=== PATIENT | female | born 1945 | race Caucasian/White ===

== ENCOUNTER → 2017-05-01 | Outpatient (CLI) | payer MEDICARE, BC ==
--- NOTE | 2017-05-01 15:51 | BD ---
EXAMINATION TYPE: MG DEXA axial skeleton. DATE OF EXAM: 05/01/2017 COMPARISON: NONE CLINICAL HISTORY: PT IS A 72 YR OLD FEMALE: ICD-10 CODE: Z13.820 SCREEN FOR OSTEOPOROSIS Height: 64.25 Weight: 179 LANGUAGE BARRIER FRAX RISK QUESTIONS: Alcohol (3 or more units per day): NO Family History (Parent hip fracture): UNKNOWN Glucocorticoids (More than 3mos): NO (Ex: prednisone, prednisolone, methylprednisolone, dexamethasone, and hydrocortisone). History of Fracture in Adulthood: NO Secondary Osteoporosis: 1. Type 1 Diabetes: NO 2. Hyperthyroidism: NO 3. Menopause before 45: NO 4. Malnutrition: NO 5. Chronic liver disease: NO Rheumatoid Arthritis: NO Current Tobacco Use: NO RISK FACTORS HISTORY OF: Family History of Osteoporosis: UNKNOWN Active: NO, WHEELCHAIR Diet low in dairy products/other sources of calcium: NO Postmenopausal woman: YES AT 51 YRS OLD Lost more than 2 inches in height since high school: YES Frequent falls: PT HAS HAD STROKE, WHEELCHAIR Hyperparathyroidism: UNSURE Adrenal Insufficiency: UNSURE MEDICATIONS: Additional Medications: ASPIRIN, LISINORPIL, GLIPIZTIDE, METFORMIN, WATER PILL, TRAMADOL, ATORVASTATI N, MAGNESIUM, CITALOPRAM, GABIPENTIN, EYE DROP MEDS Additional History: STROKE VICTIM, DIABETIC, EXAM MEASUREMENTS: Bone mineral densitometry was performed using the [employer] System. Bone mineral density as measured about the Lumbar spine is: ----- L1-L4(G/cm2): 1.088 T Score Values are as follows: ----- L1: -1.1 ----- L2: -1.6 ----- L3: -0.3 ----- L4: -0.4 ----- L1-L4: -0.8 Bone mineral density THIS IS HER FIRST BONE DENSITY TEST Bone mineral density about the R hip (g/cm2): 0.971 Bone mineral density about the L hip (g/cm2): 0.998 T Score values are as follows: -----R Neck: -1.1 -----L Neck: -1.3 -----R Total: -0.3 -----L Total: -0.1 Bone mineral density BASELINE STUDY FRAX%S: THERE IS A 9.3% CHANCE OF A MAJOR OSTEOPOROTIC FX AND A 1.2% FOR HIP FX.....PROBABILITY O F FX IN 10 YRS TIME IMPRESSION: Osteopenia (T Score between -2.5 and -1) as noted by T score values with respect to the bilateral hip s There is slightly increased risk of fracture and the patient may be considered for treatment. Re-Screen 2-5 years. NOTE: T-SCORE=SD OF THE YOUNG ADULT MEAN.
--- NOTE | 2017-05-03 07:21 | MM ---
Reason for exam: screening (asymptomatic). History: Patient is postmenopausal. Physical Findings: A clinical breast exam by your physician is recommended on an annual basis and results should be correlated with mammographic findings. MG 3D Screening Mammo W/Cad Bilateral CC and MLO view(s) were taken. There are scattered fibroglandular densities. There is no discrete abnormality. ASSESSMENT: Negative, BI-RAD 1 RECOMMENDATION: Routine screening mammogram of both breasts in 1 year.
== END | disposition home or self-care (01) ==
LOC: RADMAMWWP 12:54
PROVIDERS: ATTEND Family Medicine
DX: Z12.31 Encounter for screening mammogram for malignant neoplasm of breast (principal); M85.88 Other specified disorders of bone density and structure, other site
CPT/HCPCS: 77063; 77067; 77080

== ENCOUNTER → 2018-05-24 | Outpatient (CLI) | payer MEDICARE, BC ==
--- NOTE | 2018-05-25 10:40 | MM ---
Reason for exam: screening (asymptomatic). Last mammogram was performed 1 year and 1 month ago. History: Patient is postmenopausal. Physical Findings: A clinical breast exam by your physician is recommended on an annual basis and results should be correlated with mammographic findings. MG Screening Mammo w CAD Bilateral CC and MLO view(s) were taken. Prior study comparison: May 01, 2017, bilateral MG 3d screening mammo w/cad. There are scattered fibroglandular densities. There are benign appearing round calcifications bilaterally. Asymmetric breast tissue in the left subareolar breast, stable. There is no discrete abnormality. ASSESSMENT: Benign, BI-RAD 2 RECOMMENDATION: Routine screening mammogram of both breasts in 1 year.
== END | disposition home or self-care (01) ==
LOC: RADMAMWWP 11:54
PROVIDERS: ATTEND Family Medicine
DX: Z12.31 Encounter for screening mammogram for malignant neoplasm of breast (principal)
CPT/HCPCS: 77067

== ENCOUNTER → 2022-10-10 | Outpatient (CLI) | payer MEDICARE, BC ==
--- NOTE | 2022-10-10 10:42 | XR ---
EXAMINATION TYPE: XR humerus RT DATE OF EXAM: 10/10/2022 10:29 AM INDICATION: Patient age:Female; 77 years old; Reason for study: [id number] RT SHLD PAIN,RT ARM PAIN; [facility]. COMPARISON: None TECHNIQUE: The right humerus was examined in frontal and lateral projections. FINDINGS/IMPRESSION: The humeral head appears anterior inferiorly displaced on the glenoid. No evidence of fracture. Corre late for dislocation.
== END | disposition home or self-care (01) ==
LOC: RADXRYALE 10:17
PROVIDERS: ATTEND Nurse Practitioner Family
DX: M25.511 Pain in right shoulder (principal); M79.601 Pain in right arm

== ENCOUNTER → 2023-03-13 | Outpatient (CLI) | payer MEDICARE, BC ==
[2023-03-13 11:33] LABS: Partial Thromboplastin Time 22.8 sec (22.0-30.0)
[2023-03-13 12:22] LABS: Prothrombin Time 10.9 sec (10.0-12.5)
[2023-03-13 15:29] LABS: Basophils # (A) 0.05 X 10*3/uL (0.00-0.10); Basophils % (A) 0.5 %; Eosinophils # (A) 0.12 X 10*3/uL (0.04-0.35); Eosinophils % (A) 1.1 %; HGB 13.6 g/dL (12.0-15.0); Lymphocytes # (A) 2.37 X 10*3/uL (0.90-5.00); Lymphocytes % (A) 22.5 %; MCH 28.2 pg (27.0-32.0); MCHC 31.6 g/dL (32.0-37.0); MCV 89.2 FL (80.0-97.0); Mean Platelet Volume 10.3 FL (9.5-12.2); Monocytes # (A) 0.59 X 10*3/uL (0.20-1.00); Monocytes % (A) 5.6 %; NRBC Per 100 WBC 0 X 10*3/uL (0.00-0.01); Neutrophils # (A) 7.35 X 10*3/uL (1.80-7.70); Neutrophils % (A) 69.9 %; Platelet Count 331 X 10*3/uL (140-440); RBC 4.82 X 10*6/uL (4.10-5.20); RDW 13.4 % (11.5-14.5); WBC 10.52 X 10*3/uL (4.50-10.00)
[2023-03-13 15:52] LABS: BUN/Creat Ratio 17.22 Ratio (12.00-20.00); Blood Urea Nitrogen 15.5 mg/dL (9.0-27.0); Chloride 100 mmol/L (96-109); Glucose 91 mg/dL (70-110); Potassium 5.2 mmol/L (3.5-5.5); Sodium 140 mmol/L (135-145)
[2023-03-13 15:53] LABS: ALT 17 U/L (8-44); AST 14 U/L (13-35); Albumin 4.6 g/dL (3.8-4.9); Albumin/Globulin Ratio 1.64 Ratio (1.60-3.17); Alkaline Phosphatase 53 U/L (41-126); Calcium 10.3 mg/dL (8.7-10.3); Carbon Dioxide 28.8 mmol/L (21.6-31.8); Globulin 2.8 g/dL (1.6-3.3); Total Bilirubin 0.6 mg/dL (0.3-1.2); Total Protein 7.4 g/dL (6.2-8.2)
[2023-03-13 17:09] LABS: Appearance,Urine Clear (Clear); Bilirubin,Urine Negative (Negative); Blood,Urine Negative (Negative); Color,Urine Yellow (Yellow); Ketones,Urine Negative (Negative); Nitrite,Urine Negative (Negative); PH, Urine 6.5; Specific Gravity,Urine 1.016 (1.001-1.030); Urobilinogen,Urine 0.2 E.U./DL
[2023-03-13 17:26] LABS: Bacteria,Urine Trace
== END | disposition home or self-care (01) ==
LOC: LABPAT 10:14
PROVIDERS: ATTEND Orthopaedic Surgery
DX: Z01.812 Encounter for preprocedural laboratory examination (principal); M19.011 Primary osteoarthritis, right shoulder
CPT/HCPCS: 80053; 81001; 85025; 85610; 85730; 87070; 93005

== ENCOUNTER → 2023-04-03 | Outpatient (CLI) | payer MEDICARE, BC ==
[2023-04-03 11:24] LABS: Prothrombin Time 10.8 sec (10.0-12.5)
[2023-04-03 11:30] LABS: Partial Thromboplastin Time 21.3 sec (22.0-30.0)
[2023-04-03 16:06] LABS: HCT 44.9 % (37.2-46.3); HGB 14.2 g/dL (12.0-15.0); MCH 28.2 pg (27.0-32.0); MCHC 31.6 g/dL (32.0-37.0); MCV 89.1 FL (80.0-97.0); Mean Platelet Volume 9.6 FL (9.5-12.2); NRBC Per 100 WBC 0 X 10*3/uL (0.00-0.01); Platelet Count 407 X 10*3/uL (140-440); RBC 5.04 X 10*6/uL (4.10-5.20); RDW 13.7 % (11.5-14.5); WBC 11.81 X 10*3/uL (4.50-10.00)
[2023-04-03 16:16] LABS: ALT 20 U/L (8-44); AST 15 U/L (13-35); Albumin/Globulin Ratio 1.72 Ratio (1.60-3.17); Alkaline Phosphatase 54 U/L (41-126); BUN/Creat Ratio 27.43 Ratio (12.00-20.00); Blood Urea Nitrogen 19.2 mg/dL (9.0-27.0); Calcium 10.4 mg/dL (8.7-10.3); Carbon Dioxide 25.3 mmol/L (21.6-31.8); Chloride 98 mmol/L (96-109); Globulin 2.9 g/dL (1.6-3.3); Glucose 71 mg/dL (70-110); Potassium 4.4 mmol/L (3.5-5.5); Sodium 138 mmol/L (135-145); Total Bilirubin 1.2 mg/dL (0.3-1.2); Total Protein 7.9 g/dL (6.2-8.2)
== END | disposition home or self-care (01) ==
LOC: LABPAT 09:29
PROVIDERS: ATTEND Orthopaedic Surgery
DX: Z01.818 Encounter for other preprocedural examination (principal); M19.011 Primary osteoarthritis, right shoulder; Z22.322 Carrier or suspected carrier of Methicillin resistant Staphylococcus aureus
CPT/HCPCS: 80053; 85027; 85610; 85730; 87070; 93005

== ENCOUNTER 2023-04-25 07:05 | Inpatient (IN) | payer MEDICARE, BC ==
[2023-04-20 15:49] VITALS: BMI 26.6
[~2023-04-25 07:05] MED LIST: ACETAMINOPHEN TAB 500 MG TAB PO PRN; MELOXICAM 7.5 MG TAB PO PRN; TRANEXAMIC 1,000 MG/100ML-NACL 1,000 MG in SALINE 1 100ML.BAG IVPB PRN
[2023-04-25] MEDS ORDERED: HYDROmorphone 0.5 MG/0.5 ML SYRINGE IVP PRN ×4 (07:58→08:52)
[2023-04-25] MEDS ORDERED: LIDOCAINE 1% (10MG/ML) FOR IV START INTRADERMA PRN (07:58)
[2023-04-25] MEDS ORDERED: DEXAMETHASONE SOD PHOSPHATE 4 MG/ML 1 ML VIAL IV ONE (07:58)
[2023-04-25] MEDS ORDERED: ONDANSETRON 4 MG/2 ML VIAL IVP ONE ×2 (07:58→09:29)
[2023-04-25] MEDS ORDERED: fentaNYL (PF) 50 MCG/ML 2 ML AMP IV PRN (07:58)
[2023-04-25] MEDS ORDERED: MIDAZOLAM 2 MG/2 ML VIAL IV PRN (07:58)
[2023-04-25] MEDS ORDERED: ONDANSETRON 4 MG/2 ML VIAL IVP PRN (08:52)
[2023-04-25] MEDS ORDERED: SENNOSIDES-DOCUSATE SODIUM 1 EACH TAB PO PRN (08:52)
[2023-04-25] MEDS ORDERED: HYDROcodone/APAP 7.5-325MG 1 EACH TAB PO PRN ×2 (08:55)
[2023-04-25 09:06] LABS: Glucose,Whole Blood 137 mg/dL (70-110)
[2023-04-25] MEDS: LACTATED RINGERS 1,000 ML IV SCH (09:25)
[2023-04-25] MEDS ORDERED: DEXAMETHASONE SOD PHOSPHATE 4 MG/ML 1 ML VIAL IVP ONE (09:29)
[2023-04-25] MEDS ORDERED: MIDAZOLAM 2 MG/2 ML VIAL IVP ONE (09:31)
[2023-04-25] MEDS ORDERED: NEOSTIGMINE 1 MG/ML 10 ML VIAL ONE (11:20)
[2023-04-25] MEDS ORDERED: ROPIVACAINE 5 MG/ML 30 ML VIAL ONE (11:20)
[2023-04-25] MEDS ORDERED: SUCCINYLCHOLINE CHLORIDE 200 MG/10 ML VIAL IV ONE (11:20)
[2023-04-25] MEDS ORDERED: DEXAMETHASONE SOD PHOSPHATE 4 MG/ML 1 ML VIAL ONE (11:20)
[2023-04-25] MEDS ORDERED: LIDOCAINE 1% INJ 10MG/ML (20 ML MDV) ONE (11:20)
[2023-04-25] MEDS ORDERED: TRANEXAMIC 1,000 MG/100ML-NACL PREMIX BAG ONE (11:20)
[2023-04-25] MEDS ORDERED: PROPOFOL 10 MG/ML 20 ML VIAL IV ONE (11:20)
[2023-04-25] MEDS ORDERED: ROCURONIUM 10 MG/ML (5 ML VIAL) IV ONE (11:20)
[2023-04-25] MEDS ORDERED: PHENYLEPHRINE 10 MG/ML VIAL ONE (11:20)
[2023-04-25] MEDS ORDERED: fentaNYL (PF) 50 MCG/ML 2 ML AMP ONE (11:20)
[2023-04-25] MEDS ORDERED: WATER FOR INJECTION, STERILE 10 ML VIAL IV ONE (11:20)
[2023-04-25] MEDS ORDERED: GLYCOPYRROLATE 0.2 MG/ML 2 ML VIAL ONE (11:20)
[2023-04-25] MEDS ORDERED: ePHEDrine 50 MG/ML 1 ML VIAL ONE (11:20)
[2023-04-25] MEDS ORDERED: ceFAZolin 1,000 MG in SODIUM CHLORIDE 0.9% 1,000 ML IRRIGATION ONE (11:27)
[2023-04-25] MEDS ORDERED: LACTATED RINGERS 1,000 ML IV ONE (12:48)
--- NOTE | 2023-04-25 13:03 | P.OP ---
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 Severe glenohumeral osteoarthritis 3. Chronic rotator cuff tear Procedure(s) Performed: Reverse right total shoulder arthroplasty Implants: Biomet comprehensive shoulder system, mini humeral stem, 12 mm porous-coated. Biomet comprehensive reverse shoulder system, humeral bearing, 36 mm, standard Biomet comprehensive reverse shoulder system, mini humeral tray, 40 mm, +0, standard Biomet comprehensive reverse shoulder, Glenosphere mini baseplate, 25 mm Biomet comprehensive reverse shoulder, central screw, 6.5 mm x 30 mm Biomet comprehensive reverse shoulder, fixed locking screw, 4.75 x 20 mm, 15 mm, 15 mm, 15 mm. Biomet comprehensive reverse shoulder glenosphere, 36 mm, standard All components were press-fit. Articulation is metal on polyethylene.Articulation is metal on polyethylene. Anesthesia: GETA Surgeon: Kojo Obregon Loom Checker #1: Tesha Hernandez Estimated Blood Loss (ml): 150 Pathology: none sent Condition: stable Disposition: PACU Indications for Procedure: This is a 78-year-old female that presented to my office in September of this year. She was diagnosed with a chronic anterior inferior shoulder dislocation at that time. Attempted close reduction was performed, but due to the chronicity of the dislocation, reduction was unable to be maintained. At that time I discussed the surgical nonsurgical treatment options with her at length. After an extended period of time she decided that she would like to proceed with a reverse total shoulder arthroplasty. Informed consent was obtained. Operative Findings: The operative findings are consistent with a chronic anterior inferior shoulder dislocation of the right shoulder. Also there was severe glenohumeral osteoarthritis and a chronic rotator cuff tear. Description of Procedure: The patient was seen in the preoperative area, consent was reviewed, and operative site was marked with a skin marker. Patient was then brought to the operating room and given preoperative antibiotics intravenously. Patient was also given 1 g of Tranexamic acid intravenously. A general anesthetic was administered by the anesthesia department. A Doherty catheter was placed by the nursing staff. The patient was then placed in a beachchair position with the bony prominences well-padded and the head secured. The shoulder was then prepped and draped in the usual sterile fashion. A universal timeout was then performed, which confirmed the patient's name, surgical site, ALLERGIES, and consent. A standard deltopectoral approach was performed. The skin and subcutaneous tissue was sharply dissected down to the deltoid fascia. The cephalic vein was then identified and retracted medially. The deltopectoral interval was then utilized to expose the subscapularis tendon. A retractor was then placed under the coracobrachialis tendon retracted medially, and the deltoid. The axillary nerve is palpated and protected throughout the procedure. The subscapularis tendon was then released and retracted medially. The humeral head was then exposed easily. The rotator cuff tendon was found to be completely torn and retracted. After the humeral head was exposed, osteophytes were removed with a Ronguer. Next the humeral stem was prepared. A starter reamer was then placed through the humeral head along the axis of the humeral shaft just lateral to the articular surface and just medial to the rotator cuff attachment. Sequential reaming was performed to the appropriate size reamer was inserted to the #between the 3 and 4 on the reamer. Next the intramedullary resection guide was placed on the reamer shaft. It was placed to the appropriate resection depth and angle of 30 of retroversion. Resection guide block was then secured with Steinmann pins. The proximal humerus was then resected. The block was then removed and the humerus was then broached sequentially to the same size as the reamer. After the broaches fully seated, the broach handle was removed and a broach cover was placed protect the humerus while the glenoid was prepared. Next attention was directed to the glenoid. The appropriate retractors were placed around the glenoid and any remaining soft tissues was removed from around the glenoid. Due to the chronicity of the shoulder dislocation, there was a large amount of scar tissue about the glenoid which had to be removed. After the glenoid was adequately exposed, the threaded glenoid guide was placed onto the glenoid and a 3.2 mm Steinmann pin was inserted in the glenoid at the desired angle and position, ensuring the pin engaged medial cortical wall. Next, the cannulated baseplate reamer was placed over the top of the Steinmann pin. The glenoid was then reamed to the appropriate depth. It was noted there was significant ostial necrosis of the glenoid bone. The glenoid reamer was then removed, leaving the Steinmann pin. The glenoid base plate implant was placed on the end of the cannulated baseplate impactor. The baseplate was then impacted fully into the glenoid. Next the 6.5 mm central screw was then placed which afforded excellent fixation. The 4 peripheral locking screws were then drilled measured and placed. Next the appropriate glenosphere was opened and impacted into the glenoid baseplate. Attention was then redirected to the humerus. Next a trial humeral tray was placed in the shoulder was reduced. Shoulder was taken through a full range of motion and found to be stable. The shoulder was then gently dislocated, and the trial humerus and humeral tray were removed. The final humeral stem was impacted in the final humeral tray was impacted as well. Shoulder was then relocated. Again the shoulder was taken through a range of motion and found to have no instability. Shoulder was then irrigated with pulsatile lavage. The shoulder was then irrigated with Irrisept solution. A second dose of 1 g of Tranexamic acid was given. The subscapularis was then repaired with #1 Vicryl. The deltopectoral interval was then closed with #1 Vicryl as well. The subcutaneous tissues were closed with 3-0 Vicryl then 3-0 stratafix sututr. Exofin glue was placed on the skin. A sterile dressing was then applied, the patient was transported to the recovery room in an arm sling in stable condition. The emergency medicine physician assistant FAUSTINO Wilkins was required due the complexity of surgery and the need for a skilled medical or surgical instrument maker.
[2023-04-25 13:39] LABS: Glucose,Whole Blood 157 mg/dL (70-110)
--- NOTE | 2023-04-25 14:36 | P.ANPRN ---
Procedure Note - Anesthesia - Nerve Block Performed Right Interscalene Single Time Out Performed: Yes (91) Date of Procedure: 04/25/23 Location of Patient: PreOp Indication: Acute Post-Operative Pain, Dx/Pain Location (right shoulder), Requested by Surgeon Specifically requested for management of pain by DrRobbie: Kojo Obregon Sedation Type: Sedate with meaningful contact maintained Preparation: Sterile Prep Position: Supine Catheter: None Needle Types: Pajunk Needle Gauge: 21 Ultrasound used to visualize needle placement: Yes Ultrasound used to observe medication spread: Yes Injectate: 0.5% Ropivacaine (see comment for volume) (20 cc + 10 cc of Normal Saline + 4mg of decadron) Blood Aspirated: No Pain Paresthesia on Injection Noted: No Resistance on Injection: Normal Image Stored and Saved: Yes Events: Uneventful and Well Tolerated
--- NOTE | 2023-04-25 15:20 | XR ---
EXAMINATION TYPE: XR shoulder limited RT DATE OF EXAM: 04/25/2023 COMPARISON: 10/10/2022 HISTORY: Post right shoulder replacement TECHNIQUE: AP right shoulder FINDINGS: There is placement of a right shoulder prosthesis. Acromioclavicular junction appears intac t. No acute fractures are evident. Postsurgical soft tissue changes are evident. IMPRESSION: 1. No acute fractures post right shoulder replacement
[2023-04-25 16:00] LABS: Basophils % (A) 0 %; Eosinophils % (A) 0 %; HCT 38.4 % (34.0-46.0); HGB 12.5 gm/dL (11.4-16.0); Hypochromasia Slight; Lymphocytes # (A) 0.6 k/uL (1.0-4.8); Lymphocytes % (A) 4 %; MCH 29.7 pg (25.0-35.0); MCHC 32.6 g/dL (31.0-37.0); MCV 91.1 fL (80.0-100.0); Mean Platelet Volume 7.2; Monocytes # (A) 0.2 k/uL (0-1.0); Monocytes % (A) 2 %; Neutrophils # (A) 13.8 k/uL (1.3-7.7); Neutrophils % (A) 94 %; Platelet Count 227 k/uL (150-450); RBC 4.21 m/uL (3.80-5.40); RDW 13.7 % (11.5-15.5); WBC 14.6 k/uL (3.8-10.6)
[2023-04-25 16:22] LABS: Glucose,Whole Blood 151 mg/dL (70-110)
[2023-04-25 20:14] LABS: Glucose,Whole Blood 206 mg/dL (70-110)
[2023-04-26] MEDS: SODIUM CHLORIDE 0.9% 1,000 ML IV SCH ×3 (04:07→20:50)
[2023-04-26 06:08] LABS: Glucose,Whole Blood 97 mg/dL (70-110)
--- NOTE | 2023-04-26 09:41 | P.PN ---
Subjective Progress Note Date: 04/26/23 Principal diagnosis: Status post right reverse total shoulder This is a 78 year-old female post right reverse total shoulder. This is post-op day 1. The patient was evaluated at the bedside today. The patient denies nausea, vomiting, abdominal pain, shortness of breath, and chest pain this morning. She states her pain is controlled at this time. Objective - Vital Signs Vital signs: Vital Signs Temp 98.9 F 04/26/23 07:22 Pulse 78 04/26/23 07:22 Resp 19 04/26/23 07:22 BP 148/72 04/26/23 07:22 Pulse Ox 96 04/26/23 07:22 FiO2 Intake & Output 04/25/23 04/26/23 04/26/23 18:59 06:59 18:59 Intake Total 1551 118 Output Total 150 Balance 1401 118 Weight 69 kg Intake: IV 1551 Oral 118 Output: Estimated Blood Loss 150 Other: # Voids 1 5 1 - Exam The patient does not appear in acute distress. Alert and orientated x3. Dressing is clean dry and intact. Incision appears fine with no erythema or active drainage. Arm is soft and nontender. Good hand and wrist motion without difficulty. Sensation and circulatory status is intact. - Labs CBC & Chem 7: 04/25/23 15:37 Labs: Abnormal Lab Results - Last 24 Hours (Table) 04/25/23 04/25/23 04/25/23 Range/Units 13:38 15:37 16:20 WBC 14.6 H (3.8-10.6) k/uL Neutrophils # 13.8 H (1.3-7.7) k/uL Lymphocytes # 0.6 L (1.0-4.8) k/uL POC Glucose (mg/dL) 157 H 151 H (70-110) mg/dL 04/25/23 Range/Units 20:13 WBC (3.8-10.6) k/uL Neutrophils # (1.3-7.7) k/uL Lymphocytes # (1.0-4.8) k/uL POC Glucose (mg/dL) 206 H (70-110) mg/dL Assessment and Plan (1) Status post reverse arthroplasty of right shoulder Current Visit: Yes Status: Acute Code(s): Z96.611 - PRESENCE OF RIGHT ARTIFICIAL SHOULDER JOINT SNOMED Code(s): 57214616595162852 (2) Primary osteoarthritis, right shoulder Current Visit: Yes Status: Acute Code(s): M19.011 - PRIMARY OSTEOARTHRITIS, RIGHT SHOULDER SNOMED Code(s): 844633886164936 Plan: 1. Continue pain control 2. Arm sling to the right arm. May work on range of motion of the elbow, wrist, and hand only. 3. Encourage ambulation 4. Anticipate discharge to skilled rehab.
[2023-04-26] MEDS ORDERED: DEXTROSE 50% SYRINGE 50 ML IVP PRN ×2 (09:49)
[2023-04-26] MEDS: lisinopriL 20 MG TAB PO SCH (10:29)
[2023-04-26] MEDS: LACTATED RINGERS 1,000 ML IV SCH (10:29)
[2023-04-26] MEDS: CITALOPRAM HYDROBROMIDE 10 MG TAB PO SCH (10:29)
[2023-04-26 12:33] LABS: Glucose,Whole Blood 143 mg/dL (70-110)
--- NOTE | 2023-04-26 12:56 | P.CONS ---
History of Present Illness - Reason for Consult Consult date: 04/26/23 Medical management - History of Present Illness History of present illness; patient is 78-year-old lady brought to the hospital for elective reverse arthroplasty of right shoulder. Patient had history of anterior dislocation of right shoulder in September 2022 and underwent closed reduction of her right shoulder. Following that injury patient has been having reduced range of motion in the right shoulder, patient unable to do any activities the right arm. Patient was followed up outpatient at orthopedics and they recommended surgery for the patient for which the patient presented to the hospital on 04/25. Postoperatively internal medicine team was consulted for medical management REVIEW OF SYSTEMS: CONSTITUTIONAL: No fever, no malaise, no fatigue. HEENT: No recent visual problems or hearing problems. Denied any sore throat. CARDIOVASCULAR: No chest pain, orthopnea, PND, no palpitations, no syncope. PULMONARY: No shortness of breath, no cough, no hemoptysis. GASTROINTESTINAL: No diarrhea, no nausea, no vomiting, no abdominal pain. NEUROLOGICAL: No headaches, no weakness, no numbness. HEMATOLOGICAL: Denies any bleeding or petechiae. GENITOURINARY: Denies any burning micturition, frequency, or urgency. MUSCULOSKELETAL/RHEUMATOLOGICAL: Right shoulder pain ENDOCRINE: Denies any polyuria or polydipsia. The rest of the 14-point review of systems is negative. PHYSICAL EXAMINATION: GENERAL: The patient is alert and oriented x3, not in any acute distress. Well developed, well nourished. HEENT: Pupils are round and equally reacting to light. EOMI. No scleral icterus. No conjunctival pallor. Normocephalic, atraumatic. No pharyngeal erythema. No thyromegaly. CARDIOVASCULAR: S1 and S2 present. No murmurs, rubs, or gallops. PULMONARY: Chest is clear to auscultation, no wheezing or crackles. ABDOMEN: Soft, nontender, nondistended, normoactive bowel sounds. No palpable o rganomegaly. MUSCULOSKELETAL: Right shoulder sling seen EXTREMITIES: No cyanosis, clubbing, or pedal edema. NEUROLOGICAL: Gross neurological examination did not reveal any focal deficits. SKIN: No rashes. Assessment and plan Right shoulder osteoarthritis status post reverse arthroplasty of right total shoulder Hypertension Diabetes mellitus Monitor vital signs Monitor CBC Monitor CMP Continue pain management per orthopedics Continue DVT prophylaxis per orthopedics PT and OT consulted Resume lisinopril Resume metformin, ordered blood sugar monitoring and sliding scale insulin Labs and medication were reviewed.. Continue same treatment. Continue with symptomatic treatment. Resume home medication. Monitor labs and vitals. DVT and GI prophylaxis. Further recommendations as per clinical course of the patient Dictation was produced using [employer]UX dictation software. please excuse any grammatical, word or spelling errors. Past Medical History Past Medical History: Diabetes Mellitus, Hypertension, Osteoarthritis (OA) Additional Past Medical History / Comment(s): Frequent urination at night. History of Any Multi-Drug Resistant Organisms: None Reported Past Surgical History: Appendectomy, Cholecystectomy Additional Past Surgical History / Comment(s): Eye surgery. Past Anesthesia/Blood Transfusion Reactions: No Reported Reaction Past Psychological History: Depression Smoking Status: Never smoker Past Alcohol Use History: None Reported Past Drug Use History: None Reported - Past Family History Son(s) Family Medical History: Cancer Father Family Medical History: Cancer Medications and Allergies Home Medications Medication Instructions Recorded Confirmed Type Citalopram Hydrobromide 10 mg PO QAM 04/20/23 04/25/23 History [Citalopram HBr] Gabapentin 600 mg PO HS 04/20/23 04/25/23 History glipiZIDE 5 mg PO QAM 04/20/23 04/25/23 History lisinopriL [Zestril] 20 mg PO QAM 04/20/23 04/25/23 History metFORMIN HCL 1,000 mg PO BID 04/20/23 04/25/23 History HYDROcodone/APAP 7.5-325MG [[place] 1 - 2 tab PO Q6H PRN #32 tab 04/25/23 Rx 7.5-325] Sennosides [Senokot] 2 tab PO DAILY PRN #60 tablet 04/25/23 Rx Allergies Allergy/AdvReac Type Severity Reaction Status Date / Time No Known Allergies Allergy Verified 04/25/23 08:21 Physical Exam Vitals: Vital Signs Temp Pulse Resp BP Pulse Ox 04/26/23 07:22 98.9 F 78 19 148/72 96 04/26/23 00:49 97.8 F 72 18 124/58 95 04/25/23 19:29 98.3 F 100 22 148/82 91 L 04/25/23 16:24 68 126/59 93 L 04/25/23 15:54 78 129/64 93 L 04/25/23 15:23 57 L 113/58 90 L 04/25/23 15:08 59 L 115/63 93 L 04/25/23 14:54 59 L 115/53 93 L 04/25/23 14:38 59 L 114/57 92 L 04/25/23 14:24 97.7 F 64 16 109/60 90 L 04/25/23 13:58 63 16 123/58 93 L 04/25/23 13:43 63 16 122/58 99 04/25/23 13:28 98 F 67 19 143/61 99 Intake and Output 04/25/23 04/26/23 04/26/23 22:59 06:59 14:59 Intake Total 118 Balance 118 Intake: Oral 118 Other: # Voids 1 5 1 Results CBC & Chem 7: 04/25/23 15:37 Labs: Abnormal Lab Results - Last 24 Hours (Table) 04/25/23 04/25/23 04/25/23 Range/Units 13:38 15:37 16:20 WBC 14.6 H (3.8-10.6) k/uL Neutrophils # 13.8 H (1.3-7.7) k/uL Lymphocytes # 0.6 L (1.0-4.8) k/uL POC Glucose (mg/dL) 157 H 151 H (70-110) mg/dL 04/25/23 Range/Units 20:13 WBC (3.8-10.6) k/uL Neutrophils # (1.3-7.7) k/uL Lymphocytes # (1.0-4.8) k/uL POC Glucose (mg/dL) 206 H (70-110) mg/dL
[2023-04-26] MEDS: INSULIN ASPART (NovoLOG) 100 UNIT/ML VIAL SQ SCH ×3 (13:19→20:51)
[2023-04-26 17:07] LABS: Glucose,Whole Blood 133 mg/dL (70-110)
--- NOTE | 2023-04-26 18:46 | XR ---
EXAMINATION TYPE: XR chest 1V portable DATE OF EXAM: 04/26/2023 6:38 PM CLINICAL INDICATION:Female, 78 years old with history of requiring oxygen. COMPARISON: None. TECHNIQUE: XR chest 1V portable Frontal view of the chest. FINDINGS: Lungs/Pleura: There is obscuration of the right costophrenic sulcus. No evidence of pneumothorax is i dentified. Pulmonary vascularity: Unremarkable. Heart/mediastinum: Cardiomediastinal silhouette is unremarkable. Musculoskeletal: No acute osseous pathology. Right shoulder reverse arthroplasty present. IMPRESSION: Obscuration of the right costophrenic sulcus, likely related to a trace pleural effusion and/or atele ctasis.
[2023-04-26 20:46] LABS: Glucose,Whole Blood 174 mg/dL (70-110)
[2023-04-26] MEDS: metFORMIN 500 MG TAB PO SCH (20:50)
[2023-04-26] MEDS ORDERED: GABAPENTIN 300 MG CAP PO SCH (21:00)
[2023-04-27 05:27] LABS: Glucose,Whole Blood 153 mg/dL (70-110)
[2023-04-27] MEDS: INSULIN ASPART (NovoLOG) 100 UNIT/ML VIAL SQ SCH ×2 (05:54→12:42)
[2023-04-27 08:40] VITALS: RESP 19
[2023-04-27] MEDS: lisinopriL 20 MG TAB PO SCH (08:59)
[2023-04-27] MEDS: metFORMIN 500 MG TAB PO SCH (08:59)
[2023-04-27] MEDS: CITALOPRAM HYDROBROMIDE 10 MG TAB PO SCH (08:59)
[2023-04-27 11:13] LABS: Glucose,Whole Blood 168 mg/dL (70-110)
--- NOTE | 2023-04-27 12:20 | P.DS ---
Providers Date of admission: 04/25/23 13:12 Expected date of discharge: 04/27/23 Attending physician: Kojo Obregon Consults: 04/25/23 08:52 Consult Physician Routine Consulting Provider: Nicolas Yan Consult Reason/Comments: medical management Do you want consulting provider notified?: Yes Primary care physician: Estella [facility] [facility] Hospital Course: This is a 78-year-old female with known history of chronic dislocation of the right shoulder and severe glenohumeral osteoarthritis with chronic rotator cuff tear. The patient presented for evaluation as an outpatient. After discussion and consideration patient elects to proceed with reverse total shoulder arthroplasty. The patient is seen preoperatively by Dr. Obregon and medically cleared for surgery by their primary care physician. Patient is admitted to [facility] on 04/25/2023 for reverse total shoulder arthroplasty. The procedure is performed without complication or sequelae. The patient is doing well postoperatively. Labs and vital signs are stable on day of discharge. On day of discharge the patient's shoulder incision is healing well. There is minimal erythema. There is no drainage noted at this time. There is minimal soft tissue swelling to the shoulder. Patient has full hand and wrist motion without difficulty or pain. Neurovascular status to the right upper extremity is intact. Patient is discharged home in good condition. Please see med rec for accurate list of home medications. Plan - Discharge Summary Discharge Rx Participant: Yes New Discharge Prescriptions: New HYDROcodone/APAP 7.5-325MG [[place] 7.5-325] 1 - 2 tab PO Q6H PRN #32 tab PRN Reason: Pain Sennosides [Senokot] 2 tab PO DAILY PRN #60 tablet PRN Reason: Constipation No Action Citalopram Hydrobromide [Citalopram HBr] 10 mg PO QAM lisinopriL [Zestril] 20 mg PO QAM metFORMIN HCL 1,000 mg PO BID glipiZIDE 5 mg PO QAM Gabapentin 600 mg PO HS Discharge Medication List Citalopram Hydrobromide [Citalopram HBr] 10 mg PO QAM 04/20/23 [History] Gabapentin 600 mg PO HS 04/20/23 [History] glipiZIDE 5 mg PO QAM 04/20/23 [History] lisinopriL [Zestril] 20 mg PO QAM 04/20/23 [History] metFORMIN HCL 1,000 mg PO BID 04/20/23 [History] HYDROcodone/APAP 7.5-325MG [[place] 7.5-325] 1 - 2 tab PO Q6H PRN #32 tab 04/25/23 [Rx] Sennosides [Senokot] 2 tab PO DAILY PRN #60 tablet 04/25/23 [Rx] Follow up Appointment(s)/Referral(s): Nursing,[facility] [NON-STAFF] - As Needed Kojo Obregon DO [Doctor of Osteopathic Medicine] - 05/08/23 2:30 pm (with Tesha) Activity/Diet/Wound Care/Special Instructions: Maintain arm sling. Dressing may be removed by home care nurse or by patient in 7 days. Then change dressing twice daily until follow up. May shower with initial dressing intact and after removal. If dressing become saturated, please remove. Please follow-up with [facility] and call with any questions or concerns, . Discharge Disposition: HOME SELF-CARE
--- NOTE | 2023-04-27 13:25 | P.PN ---
Subjective Progress Note Date: 04/27/23 patient is 78-year-old lady brought to the hospital for elective reverse arthroplasty of right shoulder. Patient had history of anterior dislocation of right shoulder in September 2022 and underwent closed reduction of her right shoulder. Following that injury patient has been having reduced range of motion in the right shoulder, patient unable to do any activities the right arm. Violette rucker was followed up outpatient at orthopedics and they recommended surgery for the patient for which the patient presented to the hospital on 04/25. Postoperatively internal medicine team was consulted for medical management 04/27.Seen and examined Patient keen to go home. Denies any acute issues overnight denies any chest pain or shortness of breath. Denies any nausea or vomiting. Vital signs stable REVIEW OF SYSTEMS: CONSTITUTIONAL: No fever, no malaise,. CARDIOVASCULAR: No chest pain, no palpitations, no syncope. PULMONARY: No shortness of breath, no cough, GASTROINTESTINAL: No diarrhea, no nausea, no vomiting, no abdominal pain. NEUROLOGICAL: No headaches, no weakness, PHYSICAL EXAMINATION: GENERAL: The patient is alert and oriented x3, not in any acute distress. Well developed, well nourished. HEENT: Pupils are round and equally reacting to light. EOMI. No scleral icterus. No conjunctival pallor. Normocephalic, atraumatic. No pharyngeal erythema. No thyromegaly. CARDIOVASCULAR: S1 and S2 present. No murmurs, rubs, or gallops. PULMONARY: Chest is clear to auscultation, no wheezing or crackles. ABDOMEN: Soft, nontender, nondistended, normoactive bowel sounds. No palpable organomegaly. MUSCULOSKELETAL: Right shoulder sling seen EXTREMITIES: No cyanosis, clubbing, or pedal edema. NEUROLOGICAL: Gross neurological examination did not reveal any focal deficits. SKIN: No rashes. 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 Continue same treatment. Continue with symptomatic treatment. Resume home medication. Monitor labs and vitals. DVT and GI prophylaxis. Further recommendations as per clinical course of the patient Dictation was produced using [employer] software. please excuse any grammatical, word or spelling errors. Objective - Vital Signs Vital signs: Vital Signs Temp 98.4 F 04/27/23 07:25 Pulse 86 04/27/23 07:25 Resp 19 04/27/23 07:25 BP 165/77 04/27/23 07:25 Pulse Ox 94 L 04/27/23 07:25 FiO2 Intake & Output 04/26/23 04/27/23 04/27/23 18:59 06:59 18:59 Intake Total 236 Balance 236 Intake: Oral 236 Other: # Voids 1 4 - Labs CBC & Chem 7: 04/25/23 15:37 Labs: Abnormal Lab Results - Last 24 Hours (Table) 04/26/23 04/26/23 04/27/23 Range/Units 16:56 20:45 05:25 POC Glucose (mg/dL) 133 H 174 H 153 H (70-110) mg/dL 04/27/23 Range/Units 11:11 POC Glucose (mg/dL) 168 H (70-110) mg/dL
[2023-04-27 14:36] VITALS: BP 138/74; PULSE 91; TEMP 99
== END 2023-04-27 17:19 | disposition home or self-care (01) | DRG 483 ==
LOC: OR 07:05 → 4SSUR 13:12
PROVIDERS: ADMIT Orthopaedic Surgery; ATTEND Orthopaedic Surgery
PROC: 0RRJ00Z Replacement of Right Shoulder Joint with Reverse Ball and Socket Synthetic Substitute, Open Approach (ICD-10-PCS; principal; 2023-04-25 11:15)
DX: M19.011 Primary osteoarthritis, right shoulder (principal); M24.411 Recurrent dislocation, right shoulder; Z79.84 Long term (current) use of oral hypoglycemic drugs; E11.9 Type 2 diabetes mellitus without complications; I10 Essential (primary) hypertension; Z79.899 Other long term (current) drug therapy; M75.101 Unspecified rotator cuff tear or rupture of right shoulder, not specified as traumatic
CPT/HCPCS: 64415; 71045; 83036; 85025